=== PATIENT | male | born 1935 ===

== ENCOUNTER 2018-05-27 20:26 | Inpatient (IN) | payer MEDICARE ==
--- NOTE | 2018-05-27 20:49 | ED PDOC ---
HPI:STROKE - Time Time: 20:30 - Historian Historian: Family - Notes: Notes:: Pt BIBA with daughter who states patient was reading newspaper when had syncopal on couch, lasted 2 seconds, no seizure-like activity, no post-ictal period. Pt awoke c/o RUE and RLE weakness. Family members noted facial droop on right. Denies CP, SOB, nausea, vomiting, MARTINEZ. Daughter states pt had mini- stroke 3 years ago, evaluated @ [facility], transferred to [place] where he had cardiac cath, diagnosed with a fib. NIHSS Stroke Scale - Date/Time Evaluation Performed Date Performed: 05/27/18 Time Performed: 20:25 When Was NIHSS Performed: Code Stroke - How Severe is the Stroke Level of Consciousness: 0=Alert LOC to Questions: 0=Both comments correct LOC to commands: 0=Obeys both correctly Best Gaze: 0=Normal Visual: 0=No visual loss Facial: 1=Minor asymmetry Motor Arm - Left: 0=No drift Motor Arm - Right: 1=Drift noted before 10 sec Motor Leg - Left: 0=No drift Motor Leg - Right: 1=Drift before 5 sec Limb Ataxia: 0=Absent Sensory: 0=Normal Best Language: 0=No aphasia Dysarthia: 0=Normal articulation Extinction & Inattention (Neglect): 0=Normal, no object Score: 3 rTPA Inclusion/Exclusion - Refusal of Treatment Patient Refused Treatment: No - Inclusion Criteria for Altepase Patient is 18 years or Older: Yes The Clinical Diagnosis of Ischemic Stroke That is Causing a Potentially Disabling Neurological Deficit: Yes Time of Onset is Well Established to be Less Than 270 Minute Before Treatment Would Begin: Yes Risk/Benefit Discussed With Patient/Family Member Present: Yes - Exclusion Criteria for Altepase Uncontrolled Hypertension at Time of Treatment (Systolic BP above 185 or Diastolic BP above 110 mmHg): No Active Internal Bleeding: No Known Bleeding Diathesis Including but Not Limited to: Platelets Below 100,000/ mm,PTT Above 40 sec After Heparin Use, Current Use of Oral Anitcoagulant With INR Greater Than 1.7 or PT Greater Than 15 secs: No Evidence of an Intracranial Hemorrhage: No Evidence of Major Acute Infarct With Signs Greater Than 1/3 MCA Territory: No Suspicion of Subarachnoid Hemorrhage on Pretreatment Evaluation Even if CT Head Negative For Hemorrhage: No - Warning to TPA With Conditions Following Conditions Weighed Against Anticipated Benefit: No Additional Condition (For 3-4.5 Hour Window): Any anticoagulant use prior to admission (Even if INR less than 1.7) Past Medical History Reviewed: Nursing Documentation, Vital Signs Vital Signs: Last Vital Signs Temp Pulse 77 05/27/18 20:33 Resp 20 05/27/18 20:33 BP 149/82 05/27/18 20:33 Pulse Ox 94 L 05/27/18 20:33 - Medical History PMH: Atrial Fibrillation, HTN - Family History Family History: States: Unknown Family Hx - Living Arrangements Living Arrangements: With Family - Social History Current smoker - smoking cessation education provided: No Alcohol: None - Home Medications Home Medications: Ambulatory Orders Medication Instructions Recorded Atenolol [Tenormin] 0.5 tab PO Q12 05/27/18 - Allergies Allergies/Adverse Reactions: Allergies Allergy/AdvReac Type Severity Reaction Status Date / Time No Known Allergies Allergy Verified 05/27/18 20:33 Review of Systems Constitutional: Negative for: Fever, Chills Eyes: Negative for: Vision Change Cardiovascular: Negative for: Chest Pain, Palpitations Respiratory: Negative for: Cough, Shortness of Breath Gastrointestinal: Negative for: Nausea, Vomiting, Abdominal Pain, Diarrhea Musculoskeletal: Negative for: Neck Pain, Back Pain Skin: Negative for: Rash, Lesions Neurological: Positive for: Weakness, Numbness. Negative for: Incoordination, Change in Speech, Confusion, Seizures, Altered Mental Status, Headache, Dizziness Physical Exam - Reviewed Nursing Documentation Reviewed: Yes Vital Signs Reviewed: Yes - Physical Exam Appears: Positive for: Well, No Acute Distress Head Exam: Positive for: ATRAUMATIC, NORMAL INSPECTION Skin: Positive for: Normal Color, Warm, Dry Eye Exam: Positive for: Normal appearance, EOMI, PERRL Cardiovascular/Chest: Positive for: Irregularly Irregular Respiratory: Positive for: Normal Breath Sounds Extremity: Positive for: Normal ROM Neurologic/Psych: Positive for: Alert, Oriented, Motor/Sensory Deficits, Facial Droop. Negative for: flask fitter II-XII, Aphasia - Laboratory Results Result Diagrams: 05/27/18 20:46 05/27/18 20:46 - ECG O2 Sat by Pulse Oximetry: 94 - Core Measure Core Measure Indicators: Code Stroke - Critical Care Total Time (In Min): 90 Medical Decision Making Medical Decision Makin:[address] Qiu, if INR<1.6, NIHSS>4, will consider tPA. Hold for CT head and INR. Time:2049 --CT head with contrast FINDINGS: Brain: Bilateral white matter changes. This is nonspecific and may include microangiopathic disease, small lacunae of indeterminate chronicity, chronic infarcts and/or encephalomalacia. Chronic infarcts with encephalomalacia noted in the right cerebellum and left temporal parietal occipital region. Additional more prominent focus of encephalomalacia in the right frontal lobe. No hemorrhage. No edema. Ventricles: No hydrocephalus. Bones: Skull is intact. Sinuses: No acute sinusitis. Mastoid air cells: No mastoid effusion. IMPRESSION: Chronic changes as above with evidence of prior infarcts. Extensive chronic changes and lack of prior imaging for comparison limits evaluation. Acute infarcts/early ischemic changes may not be detectable by this modality; MRI is more sensitive in detecting acute ischemia. 21:10 Dr. Qiu notified of results, to evaluate via teleneurology. 2199 --Discussed case with Dr. Le. --Dr. Chung made aware for ICU admission. 22:45 Notified by RN that pt bleeding from gums. Minimal bleeding noted from R upper gingiva, gauze placed for compression. 12:05 Bleeding stopped with gauze packing. Disposition - Clinical Impression Clinical Impression: Acute ischemic stroke - Patient ED Disposition Is Patient to be Admitted: Yes - Disposition Disposition Time: 21:59 Condition: GUARDED - Pt Status Changed To: Hospital Disposition Of: Inpatient - Admit Certification Admit to Inpatient:: After my assessment, the patient will require hospitalization for at least two midnights. This is because of the severity of symptoms shown, intensity of services needed, and/or the medical risk in this patient being treated as an outpatient. - POA Present On Arrival: None
[2018-05-27 20:51] LABS: BASO # 0.1 K/uL (0.0-0.2); BASO % 0.8 % (0.0-2.0); EOS # 1.7 K/uL (0.0-0.7); EOS % 19.7 % (0.0-4.0); LYMPH # 2.5 K/uL (1.0-4.3); MEAN CELL VOLUME 97.5 fl (80.0-94.0); MEAN CORPUSCULAR HEMOGLOBIN 32.6 pg (27.0-31.0); MEAN CORPUSCULAR HGB CONC 33.4 g/dL (33.0-37.0); MEAN PLATELET VOLUME 8.4 fl (7.2-11.7); MONO # 0.7 K/uL (0.0-0.8); MONO % 7.7 % (0.0-10.0); NEUT # 3.7 K/uL (1.8-7.0); NEUT % 42.8 % (50.0-75.0); RED CELL DISTRIBUTION WIDTH 13.8 % (11.5-14.5); WHITE BLOOD COUNT 8.6 K/uL (4.8-10.8)
[2018-05-27 21:02] LABS: ALB/GLOB RATIO 1.2 (1.0-2.1); ALBUMIN 3.8 g/dL (3.5-5.0); CALCIUM 9.7 mg/dL (8.4-10.2); GFR AFRICAN-AMERICAN > 60; GFR NON-AFRICAN AMERICAN 53; HDL CHOLESTEROL 39 MG/DL (30-70)
[2018-05-27] MEDS: Sodium Chloride 0.9% 1,000 ML IV SCH (21:06)
[2018-05-27 21:07] LABS: INR 1.1 (0.9-1.2); PARTIAL THROMBOPLASTIN TIME 32.1 Seconds (25.6-37.1); PROTHROMBIN TIME 12.6 Seconds (9.8-13.1)
[2018-05-27 21:13] LABS: LDL CHOLESTEROL 94 mg/dL (0-129)
[2018-05-27 21:18] LABS: ALT/SGPT 30 U/L (21-72); AST/SGOT 28 U/L (17-59); BLOOD UREA NITROGEN 22 mg/dl (9-20)
--- NOTE | 2018-05-27 21:39 | CP.PCM.CON ---
History of Present Illness - History of Present Illness History of Present Illness: Tele-Stroke Neurology Consultation Note: This is a tele-health visit being conducted through Infer bi-directional video-conference. Mr. Mauricio is an 82-year-old man with a past medical history of atrial fibrillation, on coumadin, who was at home watching television, and was witnessed to have a brief episode of loss of consciousness with subsequent regaining of consciousness and sudden onset of right facial droop, dysarthria and right side weakness. He was brought to the ED, where a CT scan of the head was done and did not show any acute findings. His INR was subtherapeutic at 1.1. His SBP was slightly elevated at 149 mm Hg. He did not have any contraindications to IV tPA. His NIHSS by video exam was 4. Review of Systems - Review of Systems All systems: reviewed and no additional remarkable complaints except Past Patient History - Past Social History Alcohol: None - CARDIAC Hx Atrial Fibrillation: Yes Hx Hypertension: Yes - HEMATOLOGICAL/ONCOLOGICAL Hx Cancer: Yes - PSYCHIATRIC Hx Substance Use: No - SURGICAL HISTORY Hx Surgeries: Yes Other/Comment: jaw surgery - ANESTHESIA Hx Anesthesia: Yes Hx Anesthesia Reactions: No Hx Malignant Hyperthermia: No Meds Allergies/Adverse Reactions: Allergies Allergy/AdvReac Type Severity Reaction Status Date / Time No Known Allergies Allergy Verified 05/27/18 20:33 - Medications Medications: Current Medications Sodium Chloride (Sodium Chloride 0.9%) 1,000 mls @ 100 mls/hr IV .Q10H BERTRAM Last Admin: 05/27/18 21:06 Dose: 100 mls/hr Physical Exam - Neurological Exam Neurological exam: Abnormal Gait, Alert, CN II-XII Intact, Oriented x3 Additional comments: Right facial droop, dysarthria, right arm pronator drift, right leg drift with NIHSS of 4. Results - Vital Signs Recent Vital Signs: Last Vital Signs Temp Pulse 72 05/27/18 21:03 Resp 18 05/27/18 21:03 BP 147/76 05/27/18 21:03 Pulse Ox 94 L 05/27/18 21:22 - Labs Result Diagrams: 05/27/18 20:46 05/27/18 20:46 Labs: Laboratory Results - last 24 hr 05/27/18 05/27/18 05/27/18 20:30 20:46 20:46 WBC 8.6 RBC 4.00 L Hgb 13.0 Hct 39.0 MCV 97.5 H MCH 32.6 H MCHC 33.4 RDW 13.8 Plt Count 201 MPV 8.4 Neut % (Auto) 42.8 L Lymph % (Auto) 29.0 [place] % (Auto) 7.7 Eos % (Auto) 19.7 H Baso % (Auto) 0.8 Neut # (Auto) 3.7 Lymph # (Auto) 2.5 [place] # (Auto) 0.7 Eos # (Auto) 1.7 H Baso # (Auto) 0.1 PT INR APTT Sodium 143 Potassium 4.2 Chloride 109 H Carbon Dioxide 25 Anion Gap 13 BUN 22 H Creatinine 1.3 Est GFR ( Amer) > 60 Est GFR (Non-Af Amer) 53 POC Glucose (mg/dL) 117 H Random Glucose 137 H Calcium 9.7 Total Bilirubin 0.5 AST 28 ALT 30 Alkaline Phosphatase 81 Troponin I < 0.0120 Total Protein 6.9 Albumin 3.8 Globulin 3.1 Albumin/Globulin Ratio 1.2 Triglycerides 213 H Cholesterol 169 LDL Cholesterol Direct 94 HDL Cholesterol 39 /05/09 20:46 WBC RBC Hgb Hct MCV MCH MCHC RDW Plt Count MPV Neut % (Auto) Lymph % (Auto) [place] % (Auto) Eos % (Auto) Baso % (Auto) Neut # (Auto) Lymph # (Auto) [place] # (Auto) Eos # (Auto) Baso # (Auto) PT 12.6 INR 1.1 APTT 32.1 Sodium Potassium Chloride Carbon Dioxide Anion Gap BUN Creatinine Est GFR ( Amer) Est GFR (Non-Af Amer) POC Glucose (mg/dL) Random Glucose Calcium Total Bilirubin AST ALT Alkaline Phosphatase Troponin I Total Protein Albumin Globulin Albumin/Globulin Ratio Triglycerides Cholesterol LDL Cholesterol Direct HDL Cholesterol Assessment & Plan (1) Acute ischemic stroke Assessment and Plan: The patient is within the 3 hour time window for IV tPA. I recommend giving 0.9 mg/Kg now with the first 10% as bolus and the remainder over 1 hour as a drip. Follow post-tPA protocol and admit to ICU. In addition, I recommend the followin. STAT CTA of the head/neck 2. MRI of the brain without contrast 3. Echocardiogram 4. PT/OT eval and treatment 5. NPO till swallow eval 6. Fluids with NS at 100 mL/hr 7. No antiplatelet or anticoagulant agents for at least 24 hours 8. Check HbA1c, Lipid panel, B12, folate, TSH, homocysteine levels and vitamin D levels. 9. Case management consult Thank you. Status: Acute Priority: High
[2018-05-27] MEDS ORDERED: Iodixanol 320 MG/ML 100 ML BOTTLE IV ONE (21:45)
[2018-05-27] MEDS ORDERED: Labetalol 5 mg/ml Inj 20ML IVP PRN (22:13)
--- NOTE | 2018-05-27 22:17 | CP.PCM.CON ---
History of Present Illness - History of Present Illness History of Present Illness: CC/Reason for ICU: CVA s/p TPA History largely obtained in Maltese HPI: This is an 82 y/o male with MHx significant for A fib on coumadin and HTN who is brought into the ER with diagnosis of acute L sided CVA with R sided deficits. Per report, patient was reading the paper on the couch and had a brief syncopal episode lasting a few seconds. He then awoke and c/o RUE and RLE weakness, and family noted R sided facial droop. Denied CP/SOB. N/V/D. Denied MARTINEZ. Patient was brought to ER. Initial NIH score was 3. Patient was evaluated by tele-neuro and decision was made to give TPA. Patient currently has no c/c. Per daughter, patient may have had a TIA in the past, and had had a cardiac w/ u. He was discovered to have A fib at that time. 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 Mkr.: information noted in chart Past Patient History - Past Social History Alcohol: None - CARDIAC Hx Atrial Fibrillation: Yes Hx Hypertension: Yes - HEMATOLOGICAL/ONCOLOGICAL Hx Cancer: Yes - PSYCHIATRIC Hx Substance Use: No - SURGICAL HISTORY Hx Surgeries: Yes Other/Comment: jaw surgery - ANESTHESIA Hx Anesthesia: Yes Hx Anesthesia Reactions: No Hx Malignant Hyperthermia: No Meds Allergies/Adverse Reactions: Allergies Allergy/AdvReac Type Severity Reaction Status Date / Time No Known Allergies Allergy Verified 05/27/18 20:33 - Medications Medications: Current Medications Acetaminophen (Tylenol 325mg Tab) 650 mg PO Q6H PRN PRN Reason: Pain, Mild (1-3) Acetaminophen (Tylenol 325mg Tab) 650 mg PO Q6H PRN PRN Reason: Fever >100.4 F Atenolol (Tenormin) 0.5 mg PO Q12 BERTRAM Sodium Chloride (Sodium Chloride 0.9%) 1,000 mls @ 100 mls/hr IV .Q10H BERTRAM Last Admin: 05/27/18 21:06 Dose: 100 mls/hr Labetalol HCl (Trandate) 20 mg IVP Q6H PRN PRN Reason: for SBP > 170 Physical Exam - Constitutional Appears: No Acute Distress - Head Exam Head Exam: ATRAUMATIC, NORMOCEPHALIC - Eye Exam Eye Exam: EOMI, PERRL - ENT Exam ENT Exam: Mucous Membranes Moist - Neck Exam Neck exam: Positive for: Full Rom - Respiratory Exam Respiratory Exam: Clear to Auscultation Bilateral, NORMAL BREATHING PATTERN - Cardiovascular Exam Cardiovascular Exam: Irregular Rhythm, +S1, +S2 - GI/Abdominal Exam GI & Abdominal Exam: Normal Bowel Sounds, Soft - Extremities Exam Extremities exam: Positive for: full ROM, normal inspection - Neurological Exam Neurological exam: Alert, Oriented x3 Additional comments: R facial droop, RUE strength 4-/5, some drift against gravity, RLE strength 4-/ 5 drift against gravity; brand marketing specialist strength symmetrical - Psychiatric Exam Psychiatric exam: Anxious, Normal Affect - Skin Skin Exam: Dry, Warm Results - Vital Signs Recent Vital Signs: Last Vital Signs Temp 98.5 F 05/27/18 21:32 Pulse 72 05/27/18 22:01 Resp 17 05/27/18 22:01 BP 161/92 H 05/27/18 22:01 Pulse Ox 94 L 05/27/18 22:09 - Labs Result Diagrams: 05/27/18 20:46 05/27/18 20:46 Labs: Laboratory Results - last 24 hr 05/27/18 05/27/18 05/27/18 20:30 20:43 20:46 WBC 8.6 RBC 4.00 L Hgb 13.0 Hct 39.0 MCV 97.5 H MCH 32.6 H MCHC 33.4 RDW 13.8 Plt Count 201 MPV 8.4 Neut % (Auto) 42.8 L Lymph % (Auto) 29.0 [place] % (Auto) 7.7 Eos % (Auto) 19.7 H Baso % (Auto) 0.8 Neut # (Auto) 3.7 Lymph # (Auto) 2.5 [place] # (Auto) 0.7 Eos # (Auto) 1.7 H Baso # (Auto) 0.1 PT INR APTT Sodium Potassium Chloride Carbon Dioxide Anion Gap BUN Creatinine Est GFR ( Amer) Est GFR (Non-Af Amer) POC Glucose (mg/dL) 117 H Random Glucose Calcium Total Bilirubin AST ALT Alkaline Phosphatase Troponin I Total Protein Albumin Globulin Albumin/Globulin Ratio Triglycerides Cholesterol LDL Cholesterol Direct HDL Cholesterol Blood Type O POSITIVE Antibody Screen Negative BBK History Checked No verified bt 05/27/18 05/27/18 20:46 20:46 WBC RBC Hgb Hct MCV MCH MCHC RDW Plt Count MPV Neut % (Auto) Lymph % (Auto) [place] % (Auto) Eos % (Auto) Baso % (Auto) Neut # (Auto) Lymph # (Auto) [place] # (Auto) Eos # (Auto) Baso # (Auto) PT 12.6 INR 1.1 APTT 32.1 Sodium 143 Potassium 4.2 Chloride 109 H Carbon Dioxide 25 Anion Gap 13 BUN 22 H Creatinine 1.3 Est GFR ( Amer) > 60 Est GFR (Non-Af Amer) 53 POC Glucose (mg/dL) Random Glucose 137 H Calcium 9.7 Total Bilirubin 0.5 AST 28 ALT 30 Alkaline Phosphatase 81 Troponin I < 0.0120 Total Protein 6.9 Albumin 3.8 Globulin 3.1 Albumin/Globulin Ratio 1.2 Triglycerides 213 H Cholesterol 169 LDL Cholesterol Direct 94 HDL Cholesterol 39 Blood Type Antibody Screen BBK History Checked - EKG Data EKG Interpreted by: Myself Rate: Normal - EKG Data EKG comments: a fib, RBBB - Imaging and Cardiology CT scan - head Status: Image reviewed by me, Report reviewed by me (Chronic changes as above with evidence of prior infarcts. Extensive chronic changes and lack of) Assessment & Plan (1) Acute ischemic stroke Assessment and Plan: 82 y/o male with MHx significant for HTN and a fib on coumadin presenting with L sided CVA in setting of subtherapeutic coumadin. Is receiving TPA. 1) Acute CVA -Currently receiving TPA; tele neuro with Dr. Qiu -Pending CTA brain -Serial troponins -Lipid panel; Statin therapy to start if warranted by lipid levels -Q2H neuro checks overnight -NPO, speech/swallow eval in AM -Maintain SBP < 170 given patient received TPA -Tylenol for fevers -Accuheck q6h for now, SSI to be added if ser gluc elevated; A1C pending 2) A fib -Cont b-rosio -Hold coumadin as patient has received TPA 3) HTN -Maintian SBP < 170 4) DVT PPx -- SCDs only; no heparin products Status: Acute Priority: High (2) A-fib Status: Acute (3) HTN (hypertension) Status: Acute (4) DVT prophylaxis Status: Acute
[2018-05-28 06:47] LABS: HEMOGLOBIN 13.2 g/dL (12.0-18.0); MEAN CELL VOLUME 97.8 fl (80.0-94.0); MEAN CORPUSCULAR HEMOGLOBIN 32.6 pg (27.0-31.0); MEAN CORPUSCULAR HGB CONC 33.4 g/dL (33.0-37.0); RBC 4.06 Mil/uL (4.40-5.90); RED CELL DISTRIBUTION WIDTH 13.8 % (11.5-14.5); WHITE BLOOD COUNT 8.6 K/uL (4.8-10.8)
[2018-05-28 06:51] LABS: HDL CHOLESTEROL 39 MG/DL (30-70)
[2018-05-28 06:53] LABS: BLOOD UREA NITROGEN 19 mg/dl (9-20); CALCIUM 9.6 mg/dL (8.4-10.2); GFR AFRICAN-AMERICAN > 60; GFR NON-AFRICAN AMERICAN > 60
[2018-05-28 07:01] LABS: LDL CHOLESTEROL 113 mg/dL (0-129)
[2018-05-28] MEDS: Sodium Chloride 0.9% 1,000 ML IV SCH (07:20)
--- NOTE | 2018-05-28 08:57 | CT ---
PROCEDURE: CT HEAD WITHOUT CONTRAST. HISTORY: code stroke COMPARISON: None available. TECHNIQUE: Axial computed tomography images were obtained through the head/brain without intravenous contrast. Radiation dose: Total exam DLP = 698.3 mGy-cm. This CT exam was performed using one or more of the following dose reduction techniques: Automated exposure control, adjustment of the mA and/or kV according to patient size, and/or use of iterative reconstruction technique. FINDINGS: HEMORRHAGE: No intracranial hemorrhage. BRAIN: No mass effect or edema. Atrophy. Chronic microvascular ischemic changes. Old infarctions in the right cerebellum and left occipital region. Small area of encephalomalacia in the high right frontal lobe. VENTRICLES: Unremarkable. No hydrocephalus. CALVARIUM: Unremarkable. PARANASAL SINUSES: Unremarkable as visualized. No significant inflammatory changes. MASTOID AIR CELLS: Unremarkable as visualized. No inflammatory changes. OTHER FINDINGS: None. IMPRESSION: No acute intracranial pathology.
--- NOTE | 2018-05-28 09:48 | CP.PCM.CON ---
History of Present Illness - History of Present Illness History of Present Illness: 82 YOM with h/o a fib , on coumadine but with sub-therapeutic INR in ER was brought to ER after he had an episode when , while watching TV , he suddenly became unconscious for a brief period and we regained conscious, he had rt facial droop and rt sided arm weakness. No CP, no headache. In ER , CT head was negative , was evaluated by tele-neuro and TPA was given. Now in ICU, alert and oriented . His rt sided weakness of arm and facial droop has improved. Review of Systems - Constitutional Constitutional: As Per HPI - Cardiovascular Cardiovascular: Irregular Heart Rhythm - Respiratory Respiratory: As Per HPI - Musculoskeletal Musculoskeletal: As Per HPI - Neurological Neurological: Focal Weakness Past Patient History - Past Social History Alcohol: None - CARDIAC Hx Cardiac Disorders: Yes - HEMATOLOGICAL/ONCOLOGICAL Hx Cancer: Yes - PSYCHIATRIC Hx Substance Use: No - SURGICAL HISTORY Hx Surgeries: Yes Other/Comment: jaw surgery - ANESTHESIA Hx Anesthesia: Yes Hx Anesthesia Reactions: No Hx Malignant Hyperthermia: No Meds Allergies/Adverse Reactions: Allergies Allergy/AdvReac Type Severity Reaction Status Date / Time No Known Allergies Allergy Verified 05/27/18 20:33 - Medications Medications: Current Medications Acetaminophen (Tylenol 325mg Tab) 650 mg PO Q6H PRN PRN Reason: Pain, Mild (1-3) Acetaminophen (Tylenol 325mg Tab) 650 mg PO Q6H PRN PRN Reason: Fever >100.4 F Atenolol (Tenormin) 25 mg PO Q12 [facility] Sodium Chloride (Sodium Chloride 0.9%) 1,000 mls @ 100 mls/hr IV .Q10H [facility] Last Admin: 05/28/18 07:20 Dose: 100 mls/hr Labetalol HCl (Trandate) 20 mg IVP Q6H PRN PRN Reason: for SBP > 170 Physical Exam - Head Exam Head Exam: ATRAUMATIC - Eye Exam Pupil Exam: NORMAL ACCOMODATION - Neck Exam Neck exam: Positive for: Full Rom - Respiratory Exam Respiratory Exam: NORMAL BREATHING PATTERN - Cardiovascular Exam Cardiovascular Exam: Irregular Rhythm - GI/Abdominal Exam GI & Abdominal Exam: Soft - Extremities Exam Extremities exam: Positive for: normal capillary refill - Neurological Exam Neurological exam: Motor Sensory Deficit Results - Vital Signs Recent Vital Signs: Last Vital Signs Temp 97.5 F L 05/28/18 09:00 Pulse 67 05/28/18 09:00 Resp 19 05/28/18 09:00 BP 143/64 05/28/18 09:00 Pulse Ox 96 05/28/18 08:46 - Labs Result Diagrams: 05/28/18 06:32 05/28/18 06:32 Labs: Laboratory Results - last 24 hr 05/27/18 05/27/18 05/27/18 20:30 20:43 20:46 WBC 8.6 RBC 4.00 L Hgb 13.0 Hct 39.0 MCV 97.5 H MCH 32.6 H MCHC 33.4 RDW 13.8 Plt Count 201 MPV 8.4 Neut % (Auto) 42.8 L Lymph % (Auto) 29.0 [place] % (Auto) 7.7 Eos % (Auto) 19.7 H Baso % (Auto) 0.8 Neut # (Auto) 3.7 Lymph # (Auto) 2.5 [place] # (Auto) 0.7 Eos # (Auto) 1.7 H Baso # (Auto) 0.1 PT INR APTT Sodium Potassium Chloride Carbon Dioxide Anion Gap BUN Creatinine Est GFR ( Amer) Est GFR (Non-Af Amer) POC Glucose (mg/dL) 117 H Random Glucose Calcium Total Bilirubin AST ALT Alkaline Phosphatase Troponin I Total Protein Albumin Globulin Albumin/Globulin Ratio Triglycerides Cholesterol LDL Cholesterol Direct HDL Cholesterol Blood Type O POSITIVE Antibody Screen Negative BBK History Checked No verified bt 05/27/18 05/27/18 05/28/18 20:46 20:46 06:32 WBC 8.6 RBC 4.06 L Hgb 13.2 Hct 39.7 MCV 97.8 H MCH 32.6 H MCHC 33.4 RDW 13.8 Plt Count 200 MPV Neut % (Auto) Lymph % (Auto) [place] % (Auto) Eos % (Auto) Baso % (Auto) Neut # (Auto) Lymph # (Auto) [place] # (Auto) Eos # (Auto) Baso # (Auto) PT 12.6 INR 1.1 APTT 32.1 Sodium 143 Potassium 4.2 Chloride 109 H Carbon Dioxide 25 Anion Gap 13 BUN 22 H Creatinine 1.3 Est GFR ( Amer) > 60 Est GFR (Non-Af Amer) 53 POC Glucose (mg/dL) Random Glucose 137 H Calcium 9.7 Total Bilirubin 0.5 AST 28 ALT 30 Alkaline Phosphatase 81 Troponin I < 0.0120 Total Protein 6.9 Albumin 3.8 Globulin 3.1 Albumin/Globulin Ratio 1.2 Triglycerides 213 H Cholesterol 169 LDL Cholesterol Direct 94 HDL Cholesterol 39 Blood Type Antibody Screen BBK History Checked 05/28/18 05/28/18 05/28/18 06:32 06:32 07:26 WBC RBC Hgb Hct MCV MCH MCHC RDW Plt Count MPV Neut % (Auto) Lymph % (Auto) [place] % (Auto) Eos % (Auto) Baso % (Auto) Neut # (Auto) Lymph # (Auto) [place] # (Auto) Eos # (Auto) Baso # (Auto) PT INR APTT Sodium 145 Potassium 4.0 Chloride 111 H Carbon Dioxide 29 Anion Gap 9 L BUN 19 Creatinine 1.1 Est GFR ( Amer) > 60 Est GFR (Non-Af Amer) > 60 POC Glucose (mg/dL) 91 Random Glucose 97 Calcium 9.6 Total Bilirubin AST ALT Alkaline Phosphatase Troponin I < 0.0120 Total Protein Albumin Globulin Albumin/Globulin Ratio Triglycerides 90 D Cholesterol 172 LDL Cholesterol Direct 113 HDL Cholesterol 39 Blood Type Antibody Screen BBK History Checked Assessment & Plan - Assessment and Plan (Free Text) Assessment: Assessment & Plan (1) Acute ischemic stroke Assessment and Plan: 82 y/o male with MHx significant for HTN and a fib on coumadin , has acute ischemic CVA in setting of subtherapeutic coumadin. Is receiving TPA. Symptoms rt facial droop and Rt arm weakness has improved. --Lipid panel; Statin therapy to start if warranted by lipid levels -Q2H neuro checks overnight -NPO, speech/swallow eval in AM -Maintain SBP < 170 given patient received TPA -Tylenol for fevers -Accuheck q6h for now, SSI to be added if ser gluc elevated; A1C pending 2) A fib -Cont b-rosio -Hold coumadin as patient has received TPA 3) HTN -Maintian SBP < 170 4) DVT PPx -- SCDs only; no heparin products Status: Acute Priority: High (2) A-fib Status: Acute (3) HTN (hypertension) Status: Acute (4) DVT prophylaxis Status: Acute
[2018-05-28] MEDS ORDERED: Pneumococcal 23-Valent Vaccine IM ONE (10:24)
--- NOTE | 2018-05-28 11:31 | RAD ---
HISTORY: Code Stroke COMPARISON: No prior. FINDINGS: LUNGS: No active pulmonary disease. PLEURA: No significant pleural effusion identified, no pneumothorax apparent. CARDIOVASCULAR: Atherosclerotic aortic calcifications. Cardiomediastinal silhouette enlarged. OSSEOUS STRUCTURES: Degenerative changes. VISUALIZED UPPER ABDOMEN: Normal. OTHER FINDINGS: None. IMPRESSION: No active disease.
--- NOTE | 2018-05-28 20:24 | CP.PCM.PN ---
Subjective - Date & Time of Evaluation Date of Evaluation: 05/28/18 Time of Evaluation: 18:00 - Subjective Subjective: Mr. Mauricio was seen and examined today at bedside in the ICU with his family present. He was pleasant and conversant. He did not have any new complaints and said that he was feeling better. There were no concerning events overnight. 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 It appeared that he was not since his INR was 1.1. Objective - Vital Signs/Intake and Output Vital Signs (last 24 hours): Temp Pulse Resp BP Pulse Ox 97.7 F 63 19 163/87 H 98 05/28/18 16:00 05/28/18 18:00 05/28/18 18:00 05/28/18 18:00 05/28/18 18:00 Intake and Output: 05/28/18 05/29/18 18:59 06:59 Intake Total 540 Output Total 1400 Balance -860 - Medications Medications: Current Medications Acetaminophen (Tylenol 325mg Tab) 650 mg PO Q6H PRN PRN Reason: Pain, Mild (1-3) Acetaminophen (Tylenol 325mg Tab) 650 mg PO Q6H PRN PRN Reason: Fever >100.4 F Atenolol (Tenormin) 25 mg PO Q12 [facility] Last Admin: 05/28/18 15:28 Dose: Not Given Sodium Chloride (Sodium Chloride 0.9%) 1,000 mls @ 100 mls/hr IV .Q10H [facility] Last Admin: 05/28/18 07:20 Dose: 100 mls/hr Labetalol HCl (Trandate) 20 mg IVP Q6H PRN PRN Reason: for SBP > 170 - Labs Labs: 05/28/18 06:32 05/28/18 06:32 PT 12.6 Seconds (9.8-13.1) 05/27/18 20:46 INR 1.1 (0.9-1.2) 05/27/18 20:46 APTT 32.1 Seconds (25.6-37.1) 05/27/18 20:46 - Neurological Exam Neurological Exam: Abnormal Gait, Awake, CN II-XII Intact, Oriented x3, Reflexes Normal Neuro motor strength exam: Left Upper Extremity: 5, Right Upper Extremity: 4, Left Lower Extremity: 5, Right Lower Extremity: 5 Additional comments: NIHSS = 1 Assessment and Plan (1) Acute ischemic stroke Assessment & Plan: S/P IV tPA and is doing well. Will continue close observation, but the patient may be transferred to telemetry floor. I recommend consultation with cardiology to resume coumadin and follow-up for upcoming surgery. I would recommend switching to lovenox and bridging to coumadin after the surgery since he continues to be high risk for stroke. MRI of the brain is pending. Will obtain echocardiogram as well. Status: Acute
[2018-05-29 05:49] LABS: HEMOGLOBIN 13.5 g/dL (12.0-18.0); MEAN CORPUSCULAR HEMOGLOBIN 32.9 pg (27.0-31.0); MEAN CORPUSCULAR HGB CONC 33.6 g/dL (33.0-37.0); RBC 4.11 Mil/uL (4.40-5.90); RED CELL DISTRIBUTION WIDTH 13.6 % (11.5-14.5); WHITE BLOOD COUNT 8.8 K/uL (4.8-10.8)
[2018-05-29 06:14] LABS: BLOOD UREA NITROGEN 14 mg/dl (9-20); CALCIUM 9.8 mg/dL (8.4-10.2); GFR AFRICAN-AMERICAN > 60; GFR NON-AFRICAN AMERICAN > 60
--- NOTE | 2018-05-29 07:57 | CP.PCM.PN ---
Subjective - Date & Time of Evaluation Date of Evaluation: 05/29/18 Time of Evaluation: 07:55 - Subjective Subjective: Mr. Mauricio was seen and examined at the bedside. He is alert, awake, oriented in all spheres. He denies any headache, dizziness, blurred vision, diplopia. He is able to follow simple commands with no weakness noted and claims of having a good appetite. He further state of his impending oral surgery and need to see a cardiology prior to surgery. THere was no untoward events overnight. Objective - Vital Signs/Intake and Output Vital Signs (last 24 hours): Temp Pulse Resp BP Pulse Ox 98.2 F 65 20 137/70 95 05/29/18 04:00 05/29/18 06:00 05/29/18 06:00 05/29/18 06:00 05/29/18 06:00 Intake and Output: 05/29/18 05/29/18 06:59 18:59 Intake Total 1000 Balance 1000 - Medications Medications: Current Medications Acetaminophen (Tylenol 325mg Tab) 650 mg PO Q6H PRN PRN Reason: Pain, Mild (1-3) Acetaminophen (Tylenol 325mg Tab) 650 mg PO Q6H PRN PRN Reason: Fever >100.4 F Aspirin (Aspirin Chewable) 81 mg PO DAILY [facility] Atenolol (Tenormin) 25 mg PO Q12 [facility] Last Admin: 05/28/18 21:38 Dose: Not Given Atorvastatin Calcium (Lipitor) 40 mg PO HS [facility] Sodium Chloride (Sodium Chloride 0.9%) 1,000 mls @ 100 mls/hr IV .Q10H [facility] Last Admin: 05/28/18 07:20 Dose: 100 mls/hr Labetalol HCl (Trandate) 20 mg IVP Q6H PRN PRN Reason: for SBP > 170 - Labs Labs: 05/29/18 04:51 05/29/18 04:51 PT 12.6 Seconds (9.8-13.1) 05/27/18 20:46 INR 1.1 (0.9-1.2) 05/27/18 20:46 APTT 32.1 Seconds (25.6-37.1) 05/27/18 20:46 - Constitutional Appears: No Acute Distress - Head Exam Head Exam: NORMAL INSPECTION - Eye Exam Pupil Exam: PERRL - Neurological Exam Neurological Exam: Alert, Awake, Oriented x3 Neuro motor strength exam: Left Upper Extremity: 5, Right Upper Extremity: 5, Left Lower Extremity: 5, Right Lower Extremity: 5 Additional comments: alert, oriented, follows commands with no weakness noted, sensation is intact. Assessment and Plan (1) Ischemic stroke Assessment & Plan: Case discussed with DR. Qiu, continue all current medical, physical, occupational, and speech therapies. Pending MRI of the brain and echocardiogram. Recommend consultation with cardiology to resume coumadin and follow-up for upcoming surgery, with neurology recommendations of switching to lovenox and bridging to coumadin after the surgery since he continues to be high risk for stroke. REcommend blood presure control. keep head of bed elevated at least 30 degrees, aspirin 81 mg PO daily ( no dual antiplatet until MRI of the brain is done and depending on anti coagulant that cardiology will order), lipitor 40 mg PO Q hs to keep LDL < 70. Status: Acute
--- NOTE | 2018-05-29 09:38 | CP.CCUPN ---
CCU Subjective - Physician Review Events Since Last Encounter (Free Text): 05/29/18 09:36 alert and oriented no sob, no pain, no headache CCU Objective - Vital Signs / Intake & Output Vital Signs (Last 4 hours): Vital Signs Temp Pulse Resp BP Pulse Ox 05/29/18 08:42 74 154/92 H 05/29/18 08:00 98.2 F 65 14 154/92 H 97 05/29/18 06:00 65 20 137/70 95 Intake and Output (Last 8hrs): Intake & Output 05/28/18 05/29/18 05/29/18 22:59 06:59 14:59 Intake Total 200 800 Output Total 425 Balance -225 800 Intake: IV 200 800 Output: Urine 425 Urine, Voided 425 - Physical Exam Narrative Physical Exam (Free Text): 05/29/18 09:37 P/E Neck: No JVD Lungs: No ronchi, no crackles Abdomen: no tenderness Ext; No edema Neuro: no focal signs now . - Medications Active Medications: Active Medications Generic Name Dose Route Start Last Admin Trade Name Freq PRN Reason Stop Dose Admin Acetaminophen 650 mg 05/27/18 22:06 Tylenol 325mg Tab PO Q6H PRN Pain, Mild (1-3) Acetaminophen 650 mg 05/27/18 22:06 Tylenol 325mg Tab PO Q6H PRN Fever >100.4 F Aspirin 81 mg 05/29/18 09:00 05/29/18 08:44 Aspirin Chewable PO 81 mg DAILY [facility] Administration Atenolol 25 mg 05/28/18 09:00 05/29/18 08:42 Tenormin PO 25 mg Q12 [facility] Administration Atorvastatin Calcium 40 mg 05/29/18 22:00 Lipitor PO HS [facility] Sodium Chloride 1,000 mls @ 100 mls/hr 05/27/18 20:45 05/28/18 07:20 Sodium Chloride 0.9% IV 100 mls/hr .Q10H [facility] Administration Labetalol HCl 20 mg 05/27/18 22:13 Trandate IVP Q6H PRN for SBP > 170 - Patient Studies Lab Studies: Lab Studies 05/29/18 05/29/18 05/29/18 Range/Units 05:09 04:51 04:51 WBC 8.8 (4.8-10.8) K/uL RBC 4.11 L (4.40-5.90) Mil/uL Hgb 13.5 (12.0-18.0) g/dL Hct 40.2 (35.0-51.0) % MCV 98.0 H (80.0-94.0) fl MCH 32.9 H (27.0-31.0) pg MCHC 33.6 (33.0-37.0) g/dL RDW 13.6 (11.5-14.5) % Plt Count 196 (130-400) K/uL Sodium 143 (132-148) mmol/l Potassium 4.9 (3.6-5.0) MMOL/L Chloride 110 H (98-107) mmol/L Carbon Dioxide 26 (22-30) mmol/L Anion Gap 12 (10-20) BUN 14 (9-20) mg/dl Creatinine 1.1 (0.8-1.5) mg/dl Est GFR ( Amer) > 60 Est GFR (Non-Af Amer) > 60 POC Glucose (mg/dL) 76 (65-110) mg/dL Random Glucose 91 (75-110) mg/dL Calcium 9.8 (8.4-10.2) mg/dL Troponin I (0.00-0.120) ng/mL 05/29/18 05/28/18 05/28/18 Range/Units 04:51 16:29 12:08 WBC (4.8-10.8) K/uL RBC (4.40-5.90) Mil/uL Hgb (12.0-18.0) g/dL Hct (35.0-51.0) % MCV (80.0-94.0) fl MCH (27.0-31.0) pg MCHC (33.0-37.0) g/dL RDW (11.5-14.5) % Plt Count (130-400) K/uL Sodium (132-148) mmol/l Potassium (3.6-5.0) MMOL/L Chloride (98-107) mmol/L Carbon Dioxide (22-30) mmol/L Anion Gap (10-20) BUN (9-20) mg/dl Creatinine (0.8-1.5) mg/dl Est GFR ( Amer) Est GFR (Non-Af Amer) POC Glucose (mg/dL) 82 76 (65-110) mg/dL Random Glucose (75-110) mg/dL Calcium (8.4-10.2) mg/dL Troponin I < 0.0120 (0.00-0.120) ng/mL Laboratory Results - last 24 hr 05/28/18 05/28/18 05/29/18 12:08 16:29 04:51 WBC RBC Hgb Hct MCV MCH MCHC RDW Plt Count Sodium Potassium Chloride Carbon Dioxide Anion Gap BUN Creatinine Est GFR ( Amer) Est GFR (Non-Af Amer) POC Glucose (mg/dL) 76 82 Random Glucose Calcium Troponin I < 0.0120 05/29/18 05/29/18 05/29/18 04:51 04:51 05:09 WBC 8.8 RBC 4.11 L Hgb 13.5 Hct 40.2 MCV 98.0 H MCH 32.9 H MCHC 33.6 RDW 13.6 Plt Count 196 Sodium 143 Potassium 4.9 Chloride 110 H Carbon Dioxide 26 Anion Gap 12 BUN 14 Creatinine 1.1 Est GFR ( Amer) > 60 Est GFR (Non-Af Amer) > 60 POC Glucose (mg/dL) 76 Random Glucose 91 Calcium 9.8 Troponin I Fingerstick Blood Sugar Results: 76 Critical Care Progress Note - Nutrition Nutrition: Nutrition Category Date Time Status Dysphagia/Modified Consistency Diet [DIET] Diets 05/28/18 Lunch Active Assessment/Plan - Assessment and Plan (Free Text) Assessment: Assessment & Plan (1) Acute ischemic stroke Assessment and Plan: 82 y/o male with MHx significant for HTN and a fib on coumadin , has acute ischemic CVA in setting of subtherapeutic coumadin. Is receiving TPA. Symptoms rt facial droop and Rt arm weakness has improved. 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
--- NOTE | 2018-05-29 11:32 | CT ---
PROCEDURE: CT HEAD WITHOUT CONTRAST. HISTORY: post tpa adm. CVA COMPARISON: CT head dated 05/27/2018. TECHNIQUE: Axial computed tomography images were obtained through the head/brain without intravenous contrast. Radiation dose: Total exam DLP = 679 mGy-cm. This CT exam was performed using one or more of the following dose reduction techniques: Automated exposure control, adjustment of the mA and/or kV according to patient size, and/or use of iterative reconstruction technique. FINDINGS: HEMORRHAGE: No intracranial hemorrhage. BRAIN: No mass effect or edema. Atrophy. Chronic microvascular ischemic changes. Old infarctions in the right cerebellum and left occipital region. Smaller encephalomalacia in the high right frontal lobe VENTRICLES: Unremarkable. No hydrocephalus. CALVARIUM: Unremarkable. PARANASAL SINUSES: Unremarkable as visualized. No significant inflammatory changes. MASTOID AIR CELLS: Unremarkable as visualized. No inflammatory changes. OTHER FINDINGS: None. IMPRESSION: No acute intracranial pathology or hemorrhage.
--- NOTE | 2018-05-29 12:16 | CP.PCM.CON ---
History of Present Illness - History of Present Illness History of Present Illness: I was asked to evaluate patient by Dr Le. Patient is a 82 year old male with a PMH HTN, atrial fibrillation who presents with CVA. The patient presents with facial droop and right sided weakness. He has known atrial fibrillation, but has not been compliant with coumadin therapy. His INR was subtherapeutic. The patient was givne TPA and now symptoms have resolved. Review of Systems - Constitutional Constitutional: absent: As Per HPI, Anorexia, Chills, Daytime Sleepiness, Excessive Sweating, Fatigue, Fever, Frequent Falls, Headache, Increased Appetite , Lethargy, Malaise, Night Sweats, Snoring, Sleep Apnea, Weight Gain, Weight Loss, Weakness, Other - EENT Eyes: absent: As Per HPI, Blind Spots, Blurred Vision, Change in Vision, Decreased Night Vision, Diplopia, Discharge, Dry Eye, Exophthalmos, Floaters, Irritation, Itchy Eyes, Loss of Peripheral Vision, Pain, Photophobia, Requires Corrective Lenses, Sees Flashes, Spots in Vision, Tunnel Vision, Other Visual Disturbances, Loss of Vision, Other Ears: absent: As Per HPI, Decreased Hearing, Ear Discharge, Ear Pain, Tinnitus, Abnormal Hearing, Disequilibrium, Dizziness, Other Nose/Mouth/Throat: absent: As Per HPI, Epistaxis, Nasal Congestion, Nasal Discharge, Nasal Obstruction, Nasal Trauma, Nose Pain, Post Nasal Drip, Sinus Pain, Sinus Pressure, Bleeding Gums, Change in Voice, Dental Pain, Dry Mouth, Dysphagia, Halitosis, Hoarsness, Lip Swelling, Mouth Lesions, Mouth Pain, Odynophagia, Sore Throat, Throat Swelling, Tongue Swelling, Facial Pain, Neck Pain, Neck Mass, Other - Cardiovascular Cardiovascular: absent: As Per HPI, Acrocyanosis, Chest Pain, Chest Pain at Rest , Chest Pain with Activity, Claudication, Diaphoresis, Dyspnea, Dyspnea on Exertion, Edema, Irregular Heart Rhythm, Pain Radiating to Arm/Neck/Jaw, Leg Edema, Leg Ulcers, Lightheadedness, Orthopnea, Palpitations, Paroxysmal Nocturnal Dyspnea, Pedal Edema, Radiating Pain, Rapid Heart Rate, Slow Heart Rate, Syncope, Other - Respiratory Respiratory: absent: As Per HPI, Cough, Dyspnea, Hemoptysis, Dyspnea on Exertion , Wheezing, Snoring, Stridor, Pain on Inspiration, Chest Congestion, Excessive Mucous Production, Change in Mucous Color, Pain with Coughing, Other - Gastrointestinal Gastrointestinal: absent: As Per HPI, Abdominal Pain, Belching, Bloating, Change in Bowel Habits, Change in Stool Character, Coffee Ground Emesis, Constipation, Cramping, Diarrhea, Dyspepsia, Dysphagia, Early Satiety, Excessive Flatus, Fecal Incontinence, Heartburn, Hematemesis, Hematochezia, Loose Stools, Melena, Nausea, Odynophagia, Temesmus, Vomiting, Other - Musculoskeletal Musculoskeletal: absent: As Per HPI, Abnormal Gait, Arthralgias, Atrophy, Back Pain, Deformity, Joint Swelling, Limited Range of Motion, Loss of Height, Muscle Cramps, Muscle Weakness, Myalgias, Neck Pain, Numbness, Radiating Pain into Limb, Stiffness, Tingling, Other - Integumentary Integumentary: absent: As Per HPI, Acne, Alopecia, Bleeding Lesions, Change in Hair, Change in Nails, Change in Pigmentation, Changing Lesions, Dry Skin, Erythema, Furuncle, Hirsutism, Lesions, New Lesions, Non-Healing Lesions, Photosensitivity, Pruritus, Rash, Skin Pain, Skin Ulcer, Sores, Striae, Swelling , Unusual Bruising, Wounds, Jaundice, Other - Neurological Neurological: Focal Weakness - Psychiatric Psychiatric: absent: As Per HPI, Abnormal Sleep Pattern, Anhedonia, Anxiety, Auditory Hallucinations, Behavioral Changes, Change in Appetite, Change in Libido, Confusion, Depression, Difficulty Concentrating, Hallucinations, Homicidal Ideation, Hopelessness, Irritability, Memory Loss, Mood Swings, Panic Attacks, Paranoia, Suicidal Ideation, Visual Hallucinations, Tactile Hallucinations, Other - Endocrine Endocrine: absent: As Per HPI, Change in Body Appearance, Change in Libido, Cold Intolorance, Deepening of Voice, Excessive Sweating, Fatigue, Flushing, Heat Intolorance, Increase in Ring/Shoe/Hat Size, Palpitations, Polydipsia, Polyphagia, Polyuria, Other - Hematologic/Lymphatic Hematologic: absent: As Per HPI, Easy Bleeding, Easy Bruising, Lymphadenopathy, Other Past Patient History - Past Medical History & Family History Past Medical History?: Yes - Past Social History Alcohol: None - CARDIAC Hx Cardiac Disorders: Yes - HEMATOLOGICAL/ONCOLOGICAL Hx Cancer: Yes - MUSCULOSKELETAL/RHEUMATOLOGICAL Hx Falls: No - PSYCHIATRIC Hx Substance Use: No - SURGICAL HISTORY Hx Surgeries: Yes Other/Comment: jaw surgery - ANESTHESIA Hx Anesthesia: Yes Hx Anesthesia Reactions: No Hx Malignant Hyperthermia: No Meds Allergies/Adverse Reactions: Allergies Allergy/AdvReac Type Severity Reaction Status Date / Time No Known Allergies Allergy Verified 05/27/18 20:33 - Medications Medications: Current Medications Acetaminophen (Tylenol 325mg Tab) 650 mg PO Q6H PRN PRN Reason: Pain, Mild (1-3) Acetaminophen (Tylenol 325mg Tab) 650 mg PO Q6H PRN PRN Reason: Fever >100.4 F Aspirin (Aspirin Chewable) 81 mg PO DAILY [facility] Last Admin: 05/29/18 08:44 Dose: 81 mg Atenolol (Tenormin) 25 mg PO Q12 [facility] Last Admin: 05/29/18 08:42 Dose: 25 mg Atorvastatin Calcium (Lipitor) 40 mg PO HS [facility] Sodium Chloride (Sodium Chloride 0.9%) 1,000 mls @ 100 mls/hr IV .Q10H [facility] Last Admin: 05/28/18 07:20 Dose: 100 mls/hr Labetalol HCl (Trandate) 20 mg IVP Q6H PRN PRN Reason: for SBP > 170 Physical Exam - Constitutional Appears: Non-toxic - Head Exam Head Exam: NORMAL INSPECTION - Eye Exam Eye Exam: Normal appearance - ENT Exam ENT Exam: Mucous Membranes Moist - Neck Exam Neck exam: Positive for: Full Rom - Respiratory Exam Respiratory Exam: NORMAL BREATHING PATTERN - Cardiovascular Exam Cardiovascular Exam: Irregular Rhythm - GI/Abdominal Exam GI & Abdominal Exam: Normal Bowel Sounds - Rectal Exam Rectal Exam: Deferred - Extremities Exam Extremities exam: Negative for: pedal edema - Back Exam Back exam: NORMAL INSPECTION - Neurological Exam Neurological exam: Alert, Oriented x3 - Psychiatric Exam Psychiatric exam: Normal Affect - Skin Skin Exam: Normal Color Results - Vital Signs Recent Vital Signs: Last Vital Signs Temp 98.2 F 05/29/18 08:00 Pulse 65 05/29/18 09:00 Resp 14 05/29/18 09:00 BP 136/71 05/29/18 09:00 Pulse Ox 96 05/29/18 09:00 - Labs Result Diagrams: 05/29/18 04:51 05/29/18 04:51 Labs: Laboratory Results - last 24 hr 05/27/18 05/28/18 05/28/18 20:59 12:08 16:29 WBC RBC Hgb Hct MCV MCH MCHC RDW Plt Count Sodium Potassium Chloride Carbon Dioxide Anion Gap BUN Creatinine Est GFR ( Amer) Est GFR (Non-Af Amer) POC Glucose (mg/dL) 76 82 Random Glucose Hemoglobin A1c 5.8 Calcium Troponin I 05/29/18 05/29/18 05/29/18 04:51 04:51 04:51 WBC 8.8 RBC 4.11 L Hgb 13.5 Hct 40.2 MCV 98.0 H MCH 32.9 H MCHC 33.6 RDW 13.6 Plt Count 196 Sodium 143 Potassium 4.9 Chloride 110 H Carbon Dioxide 26 Anion Gap 12 BUN 14 Creatinine 1.1 Est GFR ( Amer) > 60 Est GFR (Non-Af Amer) > 60 POC Glucose (mg/dL) Random Glucose 91 Hemoglobin A1c Calcium 9.8 Troponin I < 0.0120 05/29/18 05/29/18 05:09 11:43 WBC RBC Hgb Hct MCV MCH MCHC RDW Plt Count Sodium Potassium Chloride Carbon Dioxide Anion Gap BUN Creatinine Est GFR ( Amer) Est GFR (Non-Af Amer) POC Glucose (mg/dL) 76 87 Random Glucose Hemoglobin A1c Calcium Troponin I - EKG Data EKG Interpreted by: Myself Assessment & Plan (1) A-fib Assessment and Plan: patient would benefit from NOAC to ensure anticoagulation. recommend Xarelto 20 mg daily. Status: Acute (2) HTN (hypertension) Assessment and Plan: blood pressure control. Status: Acute
[2018-05-29] MEDS: Pantoprazole 40 mg EC Tab PO SCH (15:02)
--- NOTE | 2018-05-29 17:45 | CP.PCM.HP ---
History of Present Illness - History of Present Illness History of Present Illness: This is an 82 y/o, male admitted for sudden onset of right facial droop and right sided weakness. 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 He apparently was noted to have a brief period of syncope while watching TV at home, and woke up with noticeable right facial droop and dysarthria and right sided weakness.Initial CT scan was unremarkable and INR was subtherapeutic. He was given tPA. He is known to be noncompliant with his meds. He has a TIA 3 years ago and noted atrial fibrillation . 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 Present on Admission - Present on Admission Any Indicators Present on Admission: No History of DVT/PE: No History of Uncontrolled Diabetes: No Urinary Catheter: No Decubitus Ulcer Present: No Past Patient History - Past Medical History & Family History Past Medical History?: Yes - Past Social History Alcohol: None - CARDIAC Hx Cardiac Disorders: Yes - HEMATOLOGICAL/ONCOLOGICAL Hx Cancer: Yes - MUSCULOSKELETAL/RHEUMATOLOGICAL Hx Falls: No - PSYCHIATRIC Hx Substance Use: No - SURGICAL HISTORY Hx Surgeries: Yes Other/Comment: jaw surgery - ANESTHESIA Hx Anesthesia: Yes Hx Anesthesia Reactions: No Hx Malignant Hyperthermia: No Meds Allergies/Adverse Reactions: Allergies Allergy/AdvReac Type Severity Reaction Status Date / Time No Known Allergies Allergy Verified 05/27/18 20:33 Physical Exam - Head Exam Head Exam: NORMAL INSPECTION - Eye Exam Eye Exam: Normal appearance - ENT Exam ENT Exam: Mucous Membranes Moist - Respiratory Exam Respiratory Exam: Clear to Auscultation Bilateral, NORMAL BREATHING PATTERN - Cardiovascular Exam Cardiovascular Exam: Irregular Rhythm - GI/Abdominal Exam GI & Abdominal Exam: Normal Bowel Sounds - Rectal Exam Rectal Exam: NORMAL INSPECTION - Neurological Exam Neurological exam: CN II-XII Intact, Oriented x3 - Psychiatric Exam Psychiatric exam: Normal Mood - Skin Skin Exam: Normal Color Results - Vital Signs Recent Vital Signs: Last Vital Signs Temp 97.6 F 05/29/18 16:00 Pulse 63 05/29/18 16:00 Resp 20 05/29/18 16:00 BP 135/70 05/29/18 16:00 Pulse Ox 97 05/29/18 16:00 - Labs Result Diagrams: 05/29/18 04:51 05/29/18 04:51 Labs: Laboratory Results - last 24 hr 05/27/18 05/29/18 05/29/18 20:59 04:51 04:51 WBC 8.8 RBC 4.11 L Hgb 13.5 Hct 40.2 MCV 98.0 H MCH 32.9 H MCHC 33.6 RDW 13.6 Plt Count 196 Sodium Potassium Chloride Carbon Dioxide Anion Gap BUN Creatinine Est GFR ( Amer) Est GFR (Non-Af Amer) POC Glucose (mg/dL) Random Glucose Hemoglobin A1c 5.8 Calcium Troponin I < 0.0120 05/29/18 05/29/18 05/29/18 04:51 05:09 11:43 WBC RBC Hgb Hct MCV MCH MCHC RDW Plt Count Sodium 143 Potassium 4.9 Chloride 110 H Carbon Dioxide 26 Anion Gap 12 BUN 14 Creatinine 1.1 Est GFR ( Amer) > 60 Est GFR (Non-Af Amer) > 60 POC Glucose (mg/dL) 76 87 Random Glucose 91 Hemoglobin A1c Calcium 9.8 Troponin I Assessment & Plan (1) Acute ischemic stroke Status: Acute Priority: High (2) A-fib Status: Acute (3) HTN (hypertension) Status: Acute - Assessment and Plan (Free Text) Plan: continue ICU montior labs neurocheck will start Lovenox 60 q 12 till surgery. will need to be on xarelto after that. Cont tx.
--- NOTE | 2018-05-29 18:08 | CP.PCM.PN ---
Subjective - Date & Time of Evaluation Date of Evaluation: 05/29/18 Time of Evaluation: 14:30 - Subjective Subjective: Patient feels a lot better. facial droop is completely resolved. Dysarthria is resolved and weakness has improved. Able to swallow liquids with straw. Has no fever has no chest pain or SOB Has no headaches. Objective - Vital Signs/Intake and Output Vital Signs (last 24 hours): Temp Pulse Resp BP Pulse Ox 97.6 F 72 15 124/70 98 05/29/18 16:00 05/29/18 17:00 05/29/18 17:00 05/29/18 17:00 05/29/18 17:00 Intake and Output: 05/29/18 05/29/18 06:59 18:59 Intake Total 1000 1100 Output Total 900 Balance 1000 200 - Medications Medications: Current Medications Acetaminophen (Tylenol 325mg Tab) 650 mg PO Q6H PRN PRN Reason: Pain, Mild (1-3) Acetaminophen (Tylenol 325mg Tab) 650 mg PO Q6H PRN PRN Reason: Fever >100.4 F Aspirin (Aspirin Chewable) 81 mg PO DAILY [facility] Last Admin: 05/29/18 08:44 Dose: 81 mg Atenolol (Tenormin) 25 mg PO Q12 [facility] Last Admin: 05/29/18 08:42 Dose: 25 mg Atorvastatin Calcium (Lipitor) 40 mg PO HS [facility] Enoxaparin Sodium (Lovenox) 60 mg SC Q12 [facility] PRN Reason: Protocol Labetalol HCl (Trandate) 20 mg IVP Q6H PRN PRN Reason: for SBP > 170 Lactulose (Enulose) 20 gm PO BID PRN PRN Reason: Constipation Pantoprazole Sodium (Protonix Ec Tab) 40 mg PO DAILY [facility] Last Admin: 05/29/18 15:02 Dose: 40 mg - Labs Labs: 05/29/18 04:51 05/29/18 04:51 PT 12.6 Seconds (9.8-13.1) 05/27/18 20:46 INR 1.1 (0.9-1.2) 05/27/18 20:46 APTT 32.1 Seconds (25.6-37.1) 05/27/18 20:46 - Head Exam Head Exam: NORMAL INSPECTION - Eye Exam Eye Exam: Normal appearance - ENT Exam ENT Exam: Mucous Membranes Moist - Respiratory Exam Respiratory Exam: Clear to Ausculation Bilateral, NORMAL BREATHING PATTERN - GI/Abdominal Exam GI & Abdominal Exam: Normal Bowel Sounds - Neurological Exam Neurological Exam: CN II-XII Intact, Oriented x3 - Psychiatric Exam Psychiatric exam: Normal Mood - Skin Skin Exam: Normal Color Assessment and Plan (1) Acute ischemic stroke Status: Acute (2) A-fib Status: Acute (3) HTN (hypertension) Status: Acute - Assessment and Plan (Free Text) Plan: Cont meds Cont tx start Lovenox 60 q 12 transfer to reg floor start Phys therapy
[2018-05-29] MEDS: Enoxaparin 60 mg Syringe SC SCH (21:27)
[2018-05-30] MEDS: Enoxaparin 60 mg Syringe SC SCH ×2 (09:17→22:03)
[2018-05-30] MEDS: Pantoprazole 40 mg EC Tab PO SCH (09:17)
--- NOTE | 2018-05-30 10:15 | CP.PCM.PN ---
Subjective - Date & Time of Evaluation Date of Evaluation: 05/30/18 Time of Evaluation: 10:15 - Subjective Subjective: Mr. Mauricio was seen and examined at the bedside. He is alert, awake, oriented in all spheres. He denies any headache, dizziness, blurred vision, diplopia. He is able to follow simple commands with no weakness noted and claims of having a good appetite. He further state of his impending oral surgery and need to see a cardiology prior to surgery. There was no untoward events overnight. Objective - Vital Signs/Intake and Output Vital Signs (last 24 hours): Temp Pulse Resp BP Pulse Ox 97.6 F 66 20 138/76 98 05/30/18 08:12 05/30/18 09:18 05/30/18 08:12 05/30/18 09:18 05/30/18 08:12 - Medications Medications: Current Medications Acetaminophen (Tylenol 325mg Tab) 650 mg PO Q6H PRN PRN Reason: Pain, Mild (1-3) Acetaminophen (Tylenol 325mg Tab) 650 mg PO Q6H PRN PRN Reason: Fever >100.4 F Aspirin (Aspirin Chewable) 81 mg PO DAILY [facility] Last Admin: 05/30/18 09:17 Dose: 81 mg Atenolol (Tenormin) 25 mg PO DAILY [facility] Last Admin: 05/30/18 09:18 Dose: 25 mg Atorvastatin Calcium (Lipitor) 40 mg PO HS [facility] Last Admin: 05/29/18 21:27 Dose: 40 mg Enoxaparin Sodium (Lovenox) 60 mg SC Q12 BERTRAM PRN Reason: Protocol Last Admin: 05/30/18 09:17 Dose: 60 mg Labetalol HCl (Trandate) 20 mg IVP Q6H PRN PRN Reason: for SBP > 170 Lactulose (Enulose) 20 gm PO BID PRN PRN Reason: Constipation Pantoprazole Sodium (Protonix Ec Tab) 40 mg PO DAILY [facility] Last Admin: 05/30/18 09:17 Dose: 40 mg - Labs Labs: 05/29/18 04:51 05/29/18 04:51 PT 12.6 Seconds (9.8-13.1) 05/27/18 20:46 INR 1.1 (0.9-1.2) 05/27/18 20:46 APTT 32.1 Seconds (25.6-37.1) 05/27/18 20:46 - Constitutional Appears: No Acute Distress - Head Exam Head Exam: NORMAL INSPECTION - Eye Exam Pupil Exam: PERRL - Neurological Exam Neurological Exam: Alert, Awake, Oriented x3 Neuro motor strength exam: Left Upper Extremity: 5, Right Upper Extremity: 5, Left Lower Extremity: 5, Right Lower Extremity: 5 Additional comments: neurological unchanged from previous examination. Assessment and Plan (1) Ischemic stroke Assessment & Plan: Case discussed with DR. Qiu, continue all current medical, physical, occupational, and speech therapies. Pending MRI of the brain and echocardiogram. Recommend consultation with cardiology to resume coumadin and follow-up for upcoming surgery, with neurology recommendations of switching to lovenox and bridging to coumadin after the surgery since he continues to be high risk for stroke. Please inform the family regarding the patient receiving tPa and his schedule proceduel on 2017. Recommend blood pressure control, resuming coumadin depending the MRI result.keep head of bed elevated at least 30 degrees, Status: Acute
--- NOTE | 2018-05-30 10:20 | CARD ---
APPROVED REPORT EKG Measurement Heart [id number] <Conclusion> Atrial fibrillation with premature ventricular or aberrantly conducted complexes Right bundle branch block Left anterior fascicular block Bifascicular block Abnormal ECG
--- NOTE | 2018-05-30 10:32 | CT ---
PROCEDURE: CT Angiography of the Brain. HISTORY: Post-tPA COMPARISON: Comparison is made with the previous same-day CT of the head without contrast. TECHNIQUE: CT angiography of the intracranial arteries was performed. Coronal and sagittal maximum intensity projection reformated images were generated. This CT exam was performed using one or more of the following dose reduction techniques: Automated exposure control, adjustment of the mA and/or kV according to patient size, and/or use of iterative reconstruction technique. Total exam DLP 1563.83 FINDINGS: INTERNAL CEREBRAL ARTERIES: Unremarkable. The skull base, petrous, cavernous and supraclinoid segments are bilaterally widely patent. ANTERIOR CEREBRAL ARTERIES: Unremarkable. A1 and A2 segments are widely patent. Smaller distal branches unremarkable, as visualized. MIDDLE CEREBRAL ARTERIES: Unremarkable. M1 and M2 segments are widely patent. Perisylvian branches grossly symmetric. POSTERIOR CIRCULATION: Basilar Artery: Unremarkable. Distal Vertebral Arteries: Unremarkable. Posterior Cerebral Arteries: Unremarkable. Posterior Inferior Cerebellar Arteries: Unremarkable. ANEURYSM/ VASCULAR MALFORMATIONS: None. OTHER FINDINGS: Again seen are foci of encephalomalacia at the right cerebellum and left occipital lobe are again noted. IMPRESSION: Unremarkable CT Angiography of the Brain. 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
[2018-05-30 20:19] VITALS: RESP 18
[2018-05-31] MEDS: Enoxaparin 60 mg Syringe SC SCH ×2 (09:07→21:21)
[2018-05-31] MEDS: Pantoprazole 40 mg EC Tab PO SCH (09:08)
--- NOTE | 2018-05-31 11:19 | CP.PCM.PN ---
Subjective - Date & Time of Evaluation Date of Evaluation: 05/30/18 Time of Evaluation: 17:00 - Subjective Subjective: Patient remains stable Noted to have parietal infarct on MRI Clinically doing well. Has no facial droop no dysarthria and all extremities have normal motor function. Has no chets pain or SOB Did very well with PT Objective - Vital Signs/Intake and Output Vital Signs (last 24 hours): Temp Pulse Resp BP Pulse Ox 97.5 F L 69 18 124/82 99 05/31/18 08:20 05/31/18 09:08 05/31/18 08:20 05/31/18 09:08 05/31/18 08:20 - Medications Medications: Current Medications Acetaminophen (Tylenol 325mg Tab) 650 mg PO Q6H PRN PRN Reason: Pain, Mild (1-3) Acetaminophen (Tylenol 325mg Tab) 650 mg PO Q6H PRN PRN Reason: Fever >100.4 F Aspirin (Aspirin Chewable) 81 mg PO DAILY [facility] Last Admin: 05/31/18 09:07 Dose: 81 mg Atenolol (Tenormin) 25 mg PO DAILY [facility] Last Admin: 05/31/18 09:08 Dose: 25 mg Atorvastatin Calcium (Lipitor) 40 mg PO HS [facility] Last Admin: 05/30/18 22:03 Dose: 40 mg Enoxaparin Sodium (Lovenox) 60 mg SC Q12 BERTRAM PRN Reason: Protocol Last Admin: 05/31/18 09:07 Dose: 60 mg Labetalol HCl (Trandate) 20 mg IVP Q6H PRN PRN Reason: for SBP > 170 Lactulose (Enulose) 20 gm PO BID PRN PRN Reason: Constipation Pantoprazole Sodium (Protonix Ec Tab) 40 mg PO DAILY [facility] Last Admin: 05/31/18 09:08 Dose: 40 mg - Labs Labs: 05/29/18 04:51 05/29/18 04:51 PT 12.6 Seconds (9.8-13.1) 05/27/18 20:46 INR 1.1 (0.9-1.2) 05/27/18 20:46 APTT 32.1 Seconds (25.6-37.1) 05/27/18 20:46 - Head Exam Head Exam: NORMAL INSPECTION - Eye Exam Eye Exam: Normal appearance - ENT Exam ENT Exam: Mucous Membranes Moist - Respiratory Exam Respiratory Exam: Clear to Ausculation Bilateral - Cardiovascular Exam Cardiovascular Exam: Irregular Rhythm - GI/Abdominal Exam GI & Abdominal Exam: Normal Bowel Sounds - Skin Skin Exam: Dry Assessment and Plan (1) Acute ischemic stroke Status: Acute (2) A-fib Status: Acute (3) HTN (hypertension) Status: Acute - Assessment and Plan (Free Text) Plan: Cont meds Cont tx Cont meds xarelto outpatient however patient will have oral surgery in 2 weeks. He will be maintained on Lovenox till after surgery then switch to xarelto.
--- NOTE | 2018-05-31 12:56 | CP.PCM.DIS ---
Provider - Provider Date of Admission: 05/27/18 21:59 Attending physician: Carmelo Le MD Primary care physician: Dr. Curry Consults: Neurology - Dr. Qiu Cardiology - Dr. Byrd Time Spent in preparation of Discharge (in minutes): 30 Diagnosis - Discharge Diagnosis (1) Acute ischemic stroke Status: Acute Priority: High (2) A-fib Status: Chronic (3) HTN (hypertension) Status: Chronic Hospital Course - Lab Results Lab Results: Micro Results 05/29/18 08:00 Naris MRSA Culture (Admit) - Final MRSA NOT DETECTED 05/28/18 10:00 Naris MRSA Culture (Admit) - Final MRSA NOT DETECTED Most Recent Lab Values WBC 8.8 K/uL (4.8-10.8) 05/29/18 04:51 RBC 4.11 Mil/uL (4.40-5.90) L 05/29/18 04:51 Hgb 13.5 g/dL (12.0-18.0) 05/29/18 04:51 Hct 40.2 % (35.0-51.0) 05/29/18 04:51 MCV 98.0 fl (80.0-94.0) H 05/29/18 04:51 MCH 32.9 pg (27.0-31.0) H 05/29/18 04:51 MCHC 33.6 g/dL (33.0-37.0) 05/29/18 04:51 RDW 13.6 % (11.5-14.5) 05/29/18 04:51 Plt Count 196 K/uL (130-400) 05/29/18 04:51 MPV 8.4 fl (7.2-11.7) 05/27/18 20:46 Neut % (Auto) 42.8 % (50.0-75.0) L 05/27/18 20:46 Lymph % (Auto) 29.0 % (20.0-40.0) 05/27/18 20:46 Swisher % (Auto) 7.7 % (0.0-10.0) 05/27/18 20:46 Eos % (Auto) 19.7 % (0.0-4.0) H 05/27/18 20:46 Baso % (Auto) 0.8 % (0.0-2.0) 05/27/18 20:46 Neut # (Auto) 3.7 K/uL (1.8-7.0) 05/27/18 20:46 Lymph # (Auto) 2.5 K/uL (1.0-4.3) 05/27/18 20:46 Swisher # (Auto) 0.7 K/uL (0.0-0.8) 05/27/18 20:46 Eos # (Auto) 1.7 K/uL (0.0-0.7) H 05/27/18 20:46 Baso # (Auto) 0.1 K/uL (0.0-0.2) 05/27/18 20:46 PT 12.6 Seconds (9.8-13.1) 05/27/18 20:46 INR 1.1 (0.9-1.2) 05/27/18 20:46 APTT 32.1 Seconds (25.6-37.1) 05/27/18 20:46 Sodium 143 mmol/l (132-148) 05/29/18 04:51 Potassium 4.9 MMOL/L (3.6-5.0) 05/29/18 04:51 Chloride 110 mmol/L (98-107) H 05/29/18 04:51 Carbon Dioxide 26 mmol/L (22-30) 05/29/18 04:51 Anion Gap 12 (10-20) 05/29/18 04:51 BUN 14 mg/dl (9-20) 05/29/18 04:51 Creatinine 1.1 mg/dl (0.8-1.5) 05/29/18 04:51 Est GFR ( Amer) > 60 05/29/18 04:51 Est GFR (Non-Af Amer) > 60 05/29/18 04:51 POC Glucose (mg/dL) 96 mg/dL (65-110) 05/31/18 10:45 Random Glucose 91 mg/dL (75-110) 05/29/18 04:51 Hemoglobin A1c 5.8 % (4.2-6.5) 05/27/18 20:59 Calcium 9.8 mg/dL (8.4-10.2) 05/29/18 04:51 Total Bilirubin 0.5 mg/dl (0.2-1.3) 05/27/18 20:46 AST 28 U/L (17-59) 05/27/18 20:46 ALT 30 U/L (21-72) 05/27/18 20:46 Alkaline Phosphatase 81 U/L (38-126) 05/27/18 20:46 Troponin I < 0.0120 ng/mL (0.00-0.120) 05/29/18 04:51 Total Protein 6.9 G/DL (6.3-8.2) 05/27/18 20:46 Albumin 3.8 g/dL (3.5-5.0) 05/27/18 20:46 Globulin 3.1 gm/dL (2.2-3.9) 05/27/18 20:46 Albumin/Globulin Ratio 1.2 (1.0-2.1) 05/27/18 20:46 Triglycerides 90 mg/DL (0-149) D 05/28/18 06:32 Cholesterol 172 mg/dL (0-199) 05/28/18 06:32 LDL Cholesterol Direct 113 mg/dL (0-129) 05/28/18 06:32 HDL Cholesterol 39 MG/DL (30-70) 05/28/18 06:32 Blood Type O POSITIVE 05/27/18 20:43 Antibody Screen Negative 05/27/18 20:43 BBK History Checked No verified bt 05/27/18 20:43 - Hospital Course Hospital Course: 82 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 He was supposed to be taking coumadin, but INR was subtherapeutic at 1.1 He was given tPA in the ED, and symptoms resolved. Originally admited to ICU , he was transfered to [facility], and he participated and did well with PT. Evaluated by cardiology- Dr. Byrd, who recommended NOAC (Xarelto). Pt is supposed to have oral surgery on the 06/17, later this month, so will continue lovenox; will start xarelto after surgery. Eval by neuro - recommend BP control , statin use, and continuing lovenox until surgery. Pt's family knows to speak to surgeon performing procedure in regards to when to stop lovenox prior to surgery. Seen with Dr. Le. Appears in good spirits, no acute events. Pt to resume home meds on d/c, with exception of coumadin- anticoag plan as above. --- 06/01/18 Pt's d/c was held until clearance of above plan by cardiology. Dr. Byrd aware of plan, as per note: rate is controlled. given upcoming surgery, can treat with lovenox. start NOAC after surgery. echo reveals normal left ventricular function. This morning pt's status unchanged; in good spirits. Discharge Exam - Head Exam Head Exam: NORMAL INSPECTION - Eye Exam Eye Exam: Normal appearance Additional comments: no facial droop appreciated - ENT Exam ENT Exam: Mucous Membranes Moist - Respiratory Exam Respiratory Exam: Clear to PA & Lateral, NORMAL BREATHING PATTERN - Cardiovascular Exam Cardiovascular Exam: REGULAR RHYTHM, +S1, +S2 - GI/Abdominal Exam GI & Abdominal Exam: Normal Bowel Sounds, Soft - Extremities Exam Extremities exam: normal inspection Additional comments: strength 5/5 in all extremities - Neurological Exam Neurological exam: Alert - Psychiatric Exam Psychiatric exam: Normal Mood Discharge Plan - Discharge Medications Prescriptions: Aspirin [Aspirin Chewable] 81 mg PO DAILY #30 chew Atorvastatin [Lipitor] 40 mg PO HS #30 tab Enoxaparin [Lovenox] 60 mg SC Q12 #20 syr Pantoprazole [Protonix EC Tab] 40 mg PO DAILY #30 ect - Follow Up Plan Condition: GUARDED Disposition: HOME/ ROUTINE Patient education suggested?: Yes Instructions: Hypertension (DC), Hypertension (GEN) Additional Instructions: follow up with PMD Dr. Curry within 1 week f/u with neurologist Dr. Qiu and band cutting machine operator Dr. Byrd in 1 week continue lovenox daily, as instructed return to ED with any new onset weakness/facial droop Referrals: Cecilio Curry MD [Family Provider] - Morelia Byrd MD [Staff Provider] - Jules Qiu MD [Medical Doctor] -
--- NOTE | 2018-05-31 14:24 | MRI ---
Date of service: 05/30/2018 PROCEDURE: MRI BRAIN WITHOUT CONTRAST HISTORY: stroke COMPARISON: . Comparison made with prior CT scan brain 05/29/2018 TECHNIQUE: Multiplanar, multisequence MR images of the brain were obtained without intravenous contrast enhancement. FINDINGS: HEMORRHAGE: No acute parenchymal, subarachnoid or extra-axial hemorrhage. No definitive evidence hemosiderin deposition identified on gradient echo weighted sequence DWI: There are multiple small acute infarct changes seen scattered throughout the left posterior subinsular region extending superiorly into the left posterior thornton radiata,, left posterior superior frontal and parietal regions. BRAIN PARENCHYMA: Seen to better advantage is an st area of partially cystic encephalomalacia changes involving the left posterior temporal parietal watershed zone with ex vacuo dilatation of the left temporal horn and left atrium. There are also partially cystic encephalomalacia right cerebellar hemisphere which could represent sequela of old infarct ; trauma less likely due obvious lack of hemosiderin deposition. Mild diffuse/ confluent chronic periventricular white matter ischemic changes with small chronic appearing lacunar type infarcts scattered about the deep and subcortical white matter of both cerebral hemispheres. . There is also encephalomalacia changes Moderate central volume loss. VENTRICLES: No obstructive hydrocephalus. CRANIUM: Unremarkable. ORBITS: Orbits and contents unremarkable. PARANASAL SINUSES/MASTOIDS: Minimal mucosal thickening seen within right maxillary antrum VASCULAR SYSTEM: Visualized major vascular flow voids at skull base patent. OTHER FINDINGS: None. IMPRESSION: There are scattered on acute infarct changes seen in the left posterior subinsular region and left posterior superior frontal and parietal cortical/subcortical regions as described. No acute intracranial hemorrhage. . Cystic encephalomalacia changes left posterior temporoparietal watershed zone with ex vacuo dilatation of the left temporal horn and left atrium. . There are also cystic encephalomalacia changes right cerebellum Mild chronic white matter ischemic changes. Moderate central volume loss.
[2018-06-01 07:55] VITALS: O2SAT 98
--- NOTE | 2018-06-01 08:05 | CP.PCM.PN ---
Subjective - Date & Time of Evaluation Date of Evaluation: 06/01/18 Time of Evaluation: 07:45 - Subjective Subjective: patient has no chest pain. Objective - Vital Signs/Intake and Output Vital Signs (last 24 hours): Temp Pulse Resp BP Pulse Ox 97.3 F L 68 18 115/62 98 06/01/18 07:55 06/01/18 07:55 06/01/18 07:55 06/01/18 07:55 06/01/18 07:55 - Medications Medications: Current Medications Acetaminophen (Tylenol 325mg Tab) 650 mg PO Q6H PRN PRN Reason: Pain, Mild (1-3) Acetaminophen (Tylenol 325mg Tab) 650 mg PO Q6H PRN PRN Reason: Fever >100.4 F Aspirin (Aspirin Chewable) 81 mg PO DAILY [facility] Last Admin: 05/31/18 09:07 Dose: 81 mg Atenolol (Tenormin) 25 mg PO DAILY [facility] Last Admin: 05/31/18 09:08 Dose: 25 mg Atorvastatin Calcium (Lipitor) 40 mg PO HS [facility] Last Admin: 05/31/18 21:21 Dose: 40 mg Enoxaparin Sodium (Lovenox) 60 mg SC Q12 BERTRAM PRN Reason: Protocol Last Admin: 05/31/18 21:21 Dose: 60 mg Labetalol HCl (Trandate) 20 mg IVP Q6H PRN PRN Reason: for SBP > 170 Lactulose (Enulose) 20 gm PO BID PRN PRN Reason: Constipation Pantoprazole Sodium (Protonix Ec Tab) 40 mg PO DAILY [facility] Last Admin: 05/31/18 09:08 Dose: 40 mg - Labs Labs: 05/29/18 04:51 05/29/18 04:51 PT 12.6 Seconds (9.8-13.1) 05/27/18 20:46 INR 1.1 (0.9-1.2) 05/27/18 20:46 APTT 32.1 Seconds (25.6-37.1) 05/27/18 20:46 - Constitutional Appears: Non-toxic - Head Exam Head Exam: NORMAL INSPECTION - Eye Exam Eye Exam: Normal appearance - ENT Exam ENT Exam: Mucous Membranes Moist - Neck Exam Neck Exam: Full ROM - Respiratory Exam Respiratory Exam: Decreased Breath Sounds - Cardiovascular Exam Cardiovascular Exam: Irregular Rhythm - GI/Abdominal Exam GI & Abdominal Exam: Normal Bowel Sounds - Rectal Exam Rectal Exam: Deferred - Extremities Exam Extremities Exam: Pedal Edema - Back Exam Back Exam: NORMAL INSPECTION - Neurological Exam Neurological Exam: Alert - Psychiatric Exam Psychiatric exam: Normal Affect - Skin Skin Exam: Normal Color Assessment and Plan (1) A-fib Assessment & Plan: rate is controlled. given upcoming surgery, can treat with lovenox. start NOAC after surgery. echo reveals normal left ventricular function Status: Chronic (2) HTN (hypertension) Assessment & Plan: well controlled Status: Chronic
[2018-06-01] MEDS: Enoxaparin 60 mg Syringe SC SCH (09:35)
[2018-06-01] MEDS: Pantoprazole 40 mg EC Tab PO SCH (10:22)
[2018-06-01 11:46] VITALS: BP 118/78; PULSE 73; TEMP 97.2
--- NOTE | 2018-06-01 12:29 | CP.PCM.PN ---
Subjective - Date & Time of Evaluation Date of Evaluation: 06/01/18 Time of Evaluation: 12:30 - Subjective Subjective: Patient is doing well. No complaints. No headache, tolerating lovenox. on exam: Normal neurological examination. no deficits noted. MMS: . Objective - Vital Signs/Intake and Output Vital Signs (last 24 hours): Temp Pulse Resp BP Pulse Ox 97.2 F L 73 18 118/78 98 06/01/18 11:46 06/01/18 11:46 06/01/18 11:46 06/01/18 11:46 06/01/18 11:46 - Medications Medications: Current Medications Acetaminophen (Tylenol 325mg Tab) 650 mg PO Q6H PRN PRN Reason: Pain, Mild (1-3) Acetaminophen (Tylenol 325mg Tab) 650 mg PO Q6H PRN PRN Reason: Fever >100.4 F Aspirin (Aspirin Chewable) 81 mg PO DAILY [facility] Last Admin: 06/01/18 10:22 Dose: 81 mg Atenolol (Tenormin) 25 mg PO DAILY [facility] Last Admin: 06/01/18 09:45 Dose: 25 mg Atorvastatin Calcium (Lipitor) 40 mg PO HS [facility] Last Admin: 05/31/18 21:21 Dose: 40 mg Enoxaparin Sodium (Lovenox) 60 mg SC Q12 EBRTRAM PRN Reason: Protocol Last Admin: 06/01/18 09:35 Dose: 60 mg Labetalol HCl (Trandate) 20 mg IVP Q6H PRN PRN Reason: for SBP > 170 Lactulose (Enulose) 20 gm PO BID PRN PRN Reason: Constipation Pantoprazole Sodium (Protonix Ec Tab) 40 mg PO DAILY [facility] Last Admin: 06/01/18 10:22 Dose: 40 mg - Labs Labs: 05/29/18 04:51 05/29/18 04:51 PT 12.6 Seconds (9.8-13.1) 05/27/18 20:46 INR 1.1 (0.9-1.2) 05/27/18 20:46 APTT 32.1 Seconds (25.6-37.1) 05/27/18 20:46 Assessment and Plan - Assessment and Plan (Free Text) Assessment: 82 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 After surgery, we will restart xarelto and follow up in clinic. Thank you Dr. leslie
== END 2018-06-01 14:16 | disposition home or self-care (01) | DRG 62 ==
LOC: H.ER 20:26 → H.ERHOLD 21:59 → H.ICU/CCU 05-28 09:18 → H.TEL 05-29 18:34
PROVIDERS: ADMIT Family Medicine; ATTEND Family Medicine
DX: I63.8 Other cerebral infarction (principal); G81.91 Hemiplegia, unspecified affecting right dominant side; R47.1 Dysarthria and anarthria; R29.810 Facial weakness; I48.2 Chronic atrial fibrillation; I10 Essential (primary) hypertension; Z79.01 Long term (current) use of anticoagulants; Z91.14 Patient's other noncompliance with medication regimen; Z86.73 Personal history of transient ischemic attack (TIA), and cerebral infarction without residual deficits